=== PATIENT | male | born 1955 | race African-American/Black ===

== ENCOUNTER 2018-01-07 12:39 | Emergency (ER) | payer MEDICAID ==
[~2018-01-07] VITALS: Ht 182.9 cm; Wt 68.0 kg
[2018-01-07 12:45] VITALS: BP 130/95
[2018-01-07 13:56] LABS: BASOPHILS % (AUTO) 1.1 % (0.0-2.0); EOSINOPHILS % (AUTO) 9.3 % (0.0-3.0); HEMATOCRIT 44.9 % (42.0-52.0); HEMOGLOBIN 14.6 G/DL (14.2-18.0); LYMPHOCYTES % (AUTO) 17.1 % (20.0-45.0); MEAN CORPUSCULAR VOLUME 96 FL (80-99); MONOCYTES % (AUTO) 6.8 % (1.0-10.0); NEUTROPHILS % (AUTO) 65.6 % (45.0-75.0); PLATELET COUNT 232 K/UL (150-450); RED BLOOD COUNT 4.69 M/UL (4.70-6.10); WHITE BLOOD COUNT 7.3 K/UL (4.8-10.8)
[2018-01-07 14:22] LABS: ANION GAP 13 mmol/L (5-15); BLOOD UREA NITROGEN 19 mg/dL (7-18); CALCIUM 9.7 MG/DL (8.5-10.1); CARBON DIOXIDE 26 MMOL/L (21-32); CHLORIDE 101 MMOL/L (98-107); CREATININE 0.8 MG/DL (0.55-1.30); SODIUM 140 MMOL/L (136-145)
[2018-01-07 14:28] LABS: ALANINE AMINOTRANSFERASE 50 U/L (12-78); ALBUMIN 3.5 G/DL (3.4-5.0); ALBUMIN/GLOBULIN RATIO 0.7 (1.0-2.7); ALKALINE PHOSPHATASE 73 U/L (46-116); ASPARTATE AMINO TRANSFERASE 53 U/L (15-37); BILIRUBIN,TOTAL 0.6 MG/DL (0.2-1.0); CKMB 0.6 NG/ML (0.0-3.6); CREATINE KINASE 137 U/L (26-308)
[2018-01-07 14:38] LABS: APPEARANCE,URINE SLIGHTLY CLOUDY; BILIRUBIN, URINE NEGATIVE (NEGATIVE); GLUCOSE, URINE (UA) NEGATIVE (NEGATIVE); KETONES,URINE 1+ (NEGATIVE); LEUKOCYTE ESTERASE ,URINE 3+ (NEGATIVE); NITRITE,URINE POSITIVE (NEGATIVE); PH,URINE 7 (4.5-8.0); PROTEIN,URINE 3+ (NEGATIVE); UROBILINOGEN,URINE 1 MG/DL (0.0-1.0)
[2018-01-07 14:47] LABS: COLOR,URINE YELLOW
--- NOTE | 2018-01-07 14:52 | Emergency Room Report ---
History of Present Illness General Chief Complaint: Generalized Weakness Source: Patient, Family Member, Medical Record, EMS Present Illness HPI This patient presents from a nursing home facility. He was recently diagnosed with metastatic cancer of uncertain source. He had a stroke and was at [facility] until 3 days ago. He's been at a nursing home facility for the past 3 days. He has residual left-sided weakness. 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 He is sent from a nursing home facility for weakness and nausea. There is no other history available. The patient states he felt nauseated earlier. He denies pain. He has no other complaints. Allergies: Coded Allergies: No Known Allergies (Unverified , 01/07/18) Patient History Past Medical History: see triage record, other - Metastatic ca, brain mets, ?TB , lung mass Social History: Denies: smoking, alcohol use, drug use Reviewed Nursing Documentation: PMH: Agreed; PSxH: Agreed Nursing Documentation-PMH Past Medical History: No History, Except For Hx Cerebrovascular Accident: Yes - left sided stroke Review of Systems All Other Systems: negative except mentioned in HPI Physical Exam Vital Signs Date Time Temp Pulse Resp B/P (MAP) Pulse Ox O2 Delivery O2 Flow Rate FiO2 01/07/18 12:28 98.9 85 16 130/95 94 Room Air 99.0 Sp02 EP Interpretation: reviewed, normal General Appearance: no apparent distress, alert, GCS 15, non-toxic, other - Frail, cachectic elderly male., Chronically Ill Head: normocephalic, atraumatic Eyes: bilateral eye normal inspection, bilateral eye PERRL ENT: hearing grossly normal, normal pharynx, no angioedema, normal voice Neck: full range of motion, supple/symm/no masses Respiratory: chest non-tender, lungs clear, normal breath sounds, no respiratory distress, no retraction, no accessory muscle use, speaking full sentences Cardiovascular #1: regular rate, rhythm, no edema Gastrointestinal: normal bowel sounds, non tender, soft, non-distended, no guarding, no rebound Rectal: deferred Musculoskeletal: back normal, normal range of motion Neurologic: alert, oriented x3, responsive, motor strength/tone normal, sensory intact, speech normal Psychiatric: judgement/insight normal, memory normal, mood/affect normal, no suicidal/homicidal ideation Skin: normal color, no rash, warm/dry, well hydrated Medical Decision Making Diagnostic Impression: Primary Impression: Pyelonephritis ER Course This elderly and chronically ill male has pyelonephritis. He is given broad- spectrum IV antibiotics and IV fluids. I'm concerned given the patient chronic illness and frailty that he could decompensate rapidly. I will admit him for further IV antibiotics, monitoring and treatment. Patient's insurance company requested his transfer. He is stable for transfer. Laboratory Tests Test 01/07/18 13:00 01/07/18 14:25 White Blood Count 7.3 K/UL (4.8-10.8) Red Blood Count 4.69 M/UL (4.70-6.10) L Hemoglobin 14.6 G/DL (14.2-18.0) Hematocrit 44.9 % (42.0-52.0) Mean Corpuscular Volume 96 FL (80-99) Mean Corpuscular Hemoglobin 31.0 PG (27.0-31.0) Mean Corpuscular Hemoglobin Concent 32.4 G/DL (32.0-36.0) Red Cell Distribution Width 13.0 % (11.6-14.8) Platelet Count 232 K/UL (150-450) Mean Platelet Volume 6.6 FL (6.5-10.1) Neutrophils (%) (Auto) 65.6 % (45.0-75.0) Lymphocytes (%) (Auto) 17.1 % (20.0-45.0) L Monocytes (%) (Auto) 6.8 % (1.0-10.0) Eosinophils (%) (Auto) 9.3 % (0.0-3.0) H Basophils (%) (Auto) 1.1 % (0.0-2.0) Sodium Level 140 MMOL/L (136-145) Potassium Level 5.0 MMOL/L (3.5-5.1) Chloride Level 101 MMOL/L (98-107) Carbon Dioxide Level 26 MMOL/L (21-32) Anion Gap 13 mmol/L (5-15) Blood Urea Nitrogen 19 mg/dL (7-18) H Creatinine 0.8 MG/DL (0.55-1.30) Estimate Glomerular Filtration Rate > 60 mL/min (>60) Glucose Level 108 MG/DL (74-106) H Lactic Acid Level 2.40 mmol/L (0.4-2.0) H Calcium Level 9.7 MG/DL (8.5-10.1) Total Bilirubin 0.6 MG/DL (0.2-1.0) Aspartate Amino Transferase (AST) 53 U/L (15-37) H Alanine Aminotransferase (ALT) 50 U/L (12-78) Alkaline Phosphatase 73 U/L (46-116) Total Creatine Kinase 137 U/L (26-308) Creatine Kinase MB 0.6 NG/ML (0.0-3.6) Creatine Kinase MB Relative Index 0.4 Troponin I 0.000 ng/mL (0.000-0.056) Total Protein 8.7 G/DL (6.4-8.2) H Albumin 3.5 G/DL (3.4-5.0) Globulin 5.2 g/dL Albumin/Globulin Ratio 0.7 (1.0-2.7) L Urine Color Yellow Urine Appearance Slightly cloudy Urine pH 7 (4.5-8.0) Urine Specific [place] 1.015 (1.005-1.035) Urine Protein 3+ (NEGATIVE) H Urine Glucose (UA) Negative (NEGATIVE) Urine Ketones 1+ (NEGATIVE) H Urine Occult Blood 3+ (NEGATIVE) H Urine Nitrite Positive (NEGATIVE) H Urine Bilirubin Negative (NEGATIVE) Urine Urobilinogen 1 MG/DL (0.0-1.0) H Urine Leukocyte Esterase 3+ (NEGATIVE) H Urine RBC 2-4 /HPF (0 - 0) H Urine WBC 30-40 /HPF (0 - 0) H Urine Squamous Epithelial Cells Occasional /LPF Urine Bacteria Many /HPF (NONE) H EKG Diagnostic Results Rate: normal Rhythm: NSR ST Segments: no acute changes Rhythm Strip Diag. Results EP Interpretation: yes Rate: 90's Rhythm: NSR, no PVC's, no ectopy Chest X-Ray Diagnostic Results Chest X-Ray Diagnostic Results : Chest X-Ray Ordered: Yes # of Views/Limited/Complete: 1 View Indication: Other EP Interpretation: No Interpretation: other - Lung mass Impression: No acute disease Electronically Signed by: [place] Last Vital Signs Date Time Temp Pulse Resp B/P (MAP) Pulse Ox O2 Delivery O2 Flow Rate FiO2 01/07/18 12:45 99.0 16 130/95 94 Room Air 99.0 7/23/18 12:28 85 Disposition: ADMITTED INPATIENT Condition: Stable Referrals: NON PHYSICIAN (PCP) Janie Tapia DO Jan 07, 2018 14:52
[2018-01-07] MEDS ORDERED: Cefepime HCl 1 GM in D5W 55 ML IVPB ONE (15:00)
[2018-01-07 15:19] VITALS: BP 121/93
--- NOTE | 2018-01-07 15:47 | Diagnostic Imaging Report ---
Indication: Dizziness Technique: XRAY Chest 1v Comparison: None Findings: There is a approximately 6.6 cm mass in the right upper lung. This is concerning for malignancy either primary or secondary. May be some central cavitation. There is no pleural effusion or pneumothorax. Heart size is within normal limits. There are atherosclerotic calcifications of the aorta. No acute osseous abnormality. IMPRESSION: Approximately 6.6 cm mass in the medial right upper lung. Malignancy (primary or secondary) should be considered. Correlation with prior exams, if available, is recommended. Alternatively, CT scan of the chest can be obtained for further evaluation.
[2018-01-07 16:48] VITALS: BP 137/96
--- NOTE | 2018-01-09 15:46 | Cardiology Report ---
APPROVED REPORT EKG Measurement Heart [id number] Normal sinus rhythm Minimal voltage criteria for LVH, may be normal variant Inferior infarct, age undetermined Abnormal ECG
== END 2018-01-07 17:07 | disposition other institution (70) ==
LOC: EDBD 12:39 → EMR 14:33
DX: N12 Tubulo-interstitial nephritis, not specified as acute or chronic (principal); C80.1 Malignant (primary) neoplasm, unspecified; C79.31 Secondary malignant neoplasm of brain; A15.9 Respiratory tuberculosis unspecified
CPT/HCPCS: 36415; 71045; 80053; 81003; 82550; 82553; 83605; 84484; 85025; 87040; 87086; 87181; 93005; 96361; 96365; 99284; J0692

== ENCOUNTER 2018-01-13 13:20 | Emergency (ER) | payer MEDICAID ==
[~2018-01-13] VITALS: Ht 177.8 cm; Wt 65.8 kg
[2018-01-13 13:21] VITALS: BP 107/68
[2018-01-13] MEDS ORDERED: Pyridoxine 50mg tab ORAL ONE (13:30)
[2018-01-13] MEDS ORDERED: DUONEB 0.5-3(2.53 ML HHN (13:30)
[2018-01-13] MEDS ORDERED: levETIRAcetam 500 MG in D5W 110 ML IV ONE (13:30)
[2018-01-13] MEDS ORDERED: ISONIAZID300 MG PO (13:31)
[2018-01-13] MEDS ORDERED: LORAZEPAM2 MG ORAL (13:33)
[2018-01-13] MEDS ORDERED: NORCO 5-325 TA1 EACH ORAL (13:38)
[2018-01-13] MEDS ORDERED: TEMAZEPAM22.5 MG PO (13:38)
[2018-01-13] MEDS ORDERED: FAMOTIDINE20 MG ORAL (13:38)
[2018-01-13] MEDS ORDERED: RIFAMPIN300 MG PO (13:38)
[2018-01-13] MEDS ORDERED: PYRIDOXINE HCL25 MG PO (13:38)
[2018-01-13] MEDS ORDERED: LOVENOX40 MG/0.4 SUBQ (13:38)
[2018-01-13 14:23] LABS: BASOPHILS % (AUTO) 1.3 % (0.0-2.0); HEMATOCRIT 37.3 % (42.0-52.0); HEMOGLOBIN 12.5 G/DL (14.2-18.0); LYMPHOCYTES % (AUTO) 13.1 % (20.0-45.0); MEAN CORPUSCULAR VOLUME 93 FL (80-99); MONOCYTES % (AUTO) 12.9 % (1.0-10.0); NEUTROPHILS % (AUTO) 70.8 % (45.0-75.0); PLATELET COUNT 237 K/UL (150-450); RED BLOOD COUNT 3.99 M/UL (4.70-6.10); RED CELL DISTRIBUTION WIDTH 12.4 % (11.6-14.8); WHITE BLOOD COUNT 8.4 K/UL (4.8-10.8)
--- NOTE | 2018-01-13 14:32 | Emergency Room Report ---
History of Present Illness General Chief Complaint: Seizure Source: EMS Present Illness HPI Patient is a 62-year-old male brought in by EMS after witnessed seizure. Patient reportedly had had a seizure which lasted approximate 7 minutes. Patient was noted to be postictal after seizure. This resolved spontaneously. Patient had no prior history of seizure disorder. Patient recent CVA and was recently hospitalized at [facility]. The patient had been taking isoniazid for the prior TB exposure. The per family member patient had previous negative TB sputum tests. Allergies: Coded Allergies: No Known Allergies (Unverified , 01/07/18) Patient History Past Medical History: see triage record Reviewed Nursing Documentation: PMH: Agreed; PSxH: Agreed Nursing Documentation-PMH Past Medical History: No History, Except For Hx Cerebrovascular Accident: Yes - 3 weeks ago Review of Systems All Other Systems: negative except mentioned in HPI Physical Exam Vital Signs Date Time Temp Pulse Resp B/P (MAP) Pulse Ox O2 Delivery O2 Flow Rate FiO2 01/13/18 13:14 98.4 94 16 107/68 95 Room Air 98.4 Sp02 EP Interpretation: reviewed, normal General Appearance: thin, Chronically Ill Head: atraumatic ENT: normal ENT inspection, hearing grossly normal, normal voice Neck: normal inspection, full range of motion, supple, no bony tend Respiratory: normal inspection, lungs clear, normal breath sounds, no respiratory distress, no retraction, no wheezing Cardiovascular #1: no edema, tachycardia Gastrointestinal: normal inspection, normal bowel sounds, non tender, soft, no guarding, no hernia Genitourinary: no CVA tenderness Musculoskeletal: normal inspection, back normal, normal range of motion Psychiatric: normal inspection, judgement/insight normal, mood/affect normal Skin: normal inspection, normal color, no rash Medical Decision Making Diagnostic Impression: Primary Impression: Epileptic seizure, generalized Additional Impression: CVA (cerebral vascular accident) ER Course Presented for seizure. Differential diagnosis included CVA, INH toxicity, cysticercosis, electrolyte abnormality, mass lesion, or intracranial hemorrhage.Because of complexity of patient's case laboratory testing and imaging studies were ordered. The patient was noted to have EKG interpreted by me was sinus tachycardia with rate of [address] or T wave changes. The patient was given IV Keppra for seizure prophylaxis. The CT the head was ordered. CT of head showed large CVA with underlying lesion right side, no shift or mass effect. The patient was discussed with Dr. Baldwin who agreed to accept the patient as a transfer to [facility]. Labs Test 01/13/18 14:05 White Blood Count 8.4 K/UL (4.8-10.8) Red Blood Count 3.99 M/UL (4.70-6.10) Hemoglobin 12.5 G/DL (14.2-18.0) Hematocrit 37.3 % (42.0-52.0) Mean Corpuscular Volume 93 FL (80-99) Mean Corpuscular Hemoglobin 31.3 PG (27.0-31.0) Mean Corpuscular Hemoglobin Concent 33.4 G/DL (32.0-36.0) Red Cell Distribution Width 12.4 % (11.6-14.8) Platelet Count 237 K/UL (150-450) Mean Platelet Volume 6.3 FL (6.5-10.1) Neutrophils (%) (Auto) 70.8 % (45.0-75.0) Lymphocytes (%) (Auto) 13.1 % (20.0-45.0) Monocytes (%) (Auto) 12.9 % (1.0-10.0) Eosinophils (%) (Auto) 2.0 % (0.0-3.0) Basophils (%) (Auto) 1.3 % (0.0-2.0) EKG Diagnostic Results Rate: normal Rhythm: NSR Last Vital Signs Date Time Temp Pulse Resp B/P (MAP) Pulse Ox O2 Delivery O2 Flow Rate FiO2 01/13/18 13:21 98.4 94 16 107/68 95 Room Air 98.4 Status: unchanged Disposition: XFER SHT-TRM HOSP Condition: Serious Referrals: [facility],REFERRING (PCP) Pato Cruz MD Jan 13, 2018 14:32
[2018-01-13 14:52] LABS: ANION GAP 11 mmol/L (5-15); BLOOD UREA NITROGEN 14 mg/dL (7-18); CALCIUM 9.4 MG/DL (8.5-10.1); CARBON DIOXIDE 27 MMOL/L (21-32); CHLORIDE 100 MMOL/L (98-107); CREATININE 0.8 MG/DL (0.55-1.30); POTASSIUM 3.9 MMOL/L (3.5-5.1); SODIUM 137 MMOL/L (136-145)
[2018-01-13 14:56] LABS: ALANINE AMINOTRANSFERASE 36 U/L (12-78); ALBUMIN 2.8 G/DL (3.4-5.0); ALBUMIN/GLOBULIN RATIO 0.5 (1.0-2.7); ALKALINE PHOSPHATASE 55 U/L (46-116); ASPARTATE AMINO TRANSFERASE 25 U/L (15-37); BILIRUBIN,TOTAL 0.4 MG/DL (0.2-1.0)
[2018-01-13 15:07] VITALS: BP 134/92
[2018-01-13 16:08] VITALS: BP 134/92
--- NOTE | 2018-01-14 08:55 | Diagnostic Imaging Report ---
Indications: Altered mental status Technique: Spiral acquisitions obtained through the brain. Angled axial and coronal 5 x 5 mm slices were reconstructed. Total dose length product 1481.65 mGycm. CTDI vol(s) 70.38 mGy. Dose reduction achieved using automated exposure control Comparison: None. Findings: There is a 3 cm cystic mass in the anterior right parietal lobe. There is extensive surrounding vasogenic edema. This results in mass effect, with compression of the right lateral ventricle and 7 mm of [id number] midline shift. A second similar lesion is seen in the parasagittal left frontal lobe, measures 2.6 cm in diameter, and results in considerable frontal vasogenic edema, which is less extensive than that seen on the right. There is attenuation of the frontal horn of the left lateral ventricle; overall ventricular attenuation on the left is less severe than on the right. No definite acute hemorrhage. The basilar cisterns are preserved. The calvarium is intact. The orbits and visualized sinuses are unremarkable. 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 Infectious lesions also possible. Considerable mass effect, with near complete obliteration of the right lateral ventricle, attenuation of the left lateral ventricle, and 7 mm right to left midline shift. Basilar cisterns remain patent, however. Negative for acute intracranial bleed This essentially agrees with the preliminary report provided overnight by [facility] teleradiology service, with some variation The CT scanner at [facility] is accredited by the [employer] and the scans are performed using protocols designed to limit radiation exposure to as low as reasonably achievable to attain images of sufficient resolution adequate for diagnostic evaluation.
--- NOTE | 2018-01-14 19:32 | Cardiology Report ---
APPROVED REPORT EKG Measurement Heart [id number] Sinus tachycardia Biatrial enlargement Nonspecific T wave abnormality Abnormal ECG
== END 2018-01-13 16:10 | disposition short-term general hospital (02) ==
LOC: EDBD 13:20 → EMR 13:30
DX: G40.409 Other generalized epilepsy and epileptic syndromes, not intractable, without status epilepticus (principal); Z86.73 Personal history of transient ischemic attack (TIA), and cerebral infarction without residual deficits
CPT/HCPCS: 36415; 70450; 80053; 85025; 93005; 96374; 99284; J1953